=== PATIENT | female | born 1995 | race Caucasian/White ===

== ENCOUNTER → 2016-09-30 | Outpatient (CLI) | payer OTHER ==
[~2016-09-30] MED LIST: FLEXERIL10 M1 PO; FLEXERIL10 MG PO; LEXAPRO PO; NO MEDICATIONS; VOLTAREN75 MG PO
--- NOTE | ~2016-09-30 | US6 ---
[facility] A Service of [facility] & [facility] RADIOLOGY TEXT RESULTS PATIENT: MELINDA PISANO LOCATION: [facility] : 95 UNIT #: [id number] AGE: [address]: Colby Miller MD SEX: F ORDER DR: [id number] [facility] [address] [place], [place] [address] [id number] O MR#: [id number] Acc #: [id number] NAME: MELINDA PISANO : 1995 SEX: F STUDY DATE/TIME: 09/30/2016 7:23 UNIT: [facility] ROOM: STUDY DESCRIPTION: US Abdominal Limited Attending Physician: Colby Miller M.D. Referring Physician: Colby Miller M.D. Ordering Physician: Colby Miller M.D. Primary Care Physician: Godfrey Jackson M.D. MEDICAL IMAGING REPORT This report is preliminary unless electronic signature is present EXAM Right quadrant abdominal ultrasound, 09/30/2016 HISTORY Physician's order states abdominal pain, nausea and vomiting, hematemesis, anxiety. The patient states abdominal pain for [address] abdomen and pelvis with contrast, 02/10/2012 FINDINGS Pancreas is partially obscured by bowel gas but the visualized pancreas appears normal. The liver has a normal sonographic appearance without focal or suspicious abnormality. Liver size is within normal limits, 14.5 cm in long axis. No ascites is seen. Intrahepatic IVC has a normal garg-scale appearance. The gallbladder is free of shadowing stone, sludge, wall thickening or pericholecystic fluid. Right kidney measures 9.6 cm in length without focal cortical lesion, shadowing stone or hydronephrosis. Common bile duct caliber is normal, 2.0 mm. No intrahepatic biliary ductal dilation is seen. IMPRESSION Normal right upper quadrant abdominal ultrasound. Dictated by... Marilynn Mensah M.D. THIS IS AN ELECTRONICALLY VERIFIED REPORT Marilynn Mensah M.D. at 09/30/2016 5:06 PM SHELLI/krystyna STS. [facility] A Service of [facility] & [facility] RADIOLOGY TEXT RESULTS PATIENT: MELINDA PISANO LOCATION: [facility] : 95 UNIT #: [id number] AGE: [address]: Colby Miller MD SEX: F ORDER DR: TD: 09/30/2016 10:37 JOB #: [id number] MEDICAL IMAGING REPORT Page 1 of 1 COPY
== END | disposition home or self-care (01) ==
LOC: CGUS 06:45
DX: R10.11 Right upper quadrant pain (principal); R11.2 Nausea with vomiting, unspecified; K92.0 Hematemesis; F41.9 Anxiety disorder, unspecified
CPT/HCPCS: 76705

== ENCOUNTER 2017-01-26 17:15 | Emergency (ER) | payer OTHER ==
[~2017-01-26] VITALS: Ht 154.9 cm; Wt 90.7 kg
== END 2017-01-26 17:45 | disposition left against medical advice (07) ==
LOC: CED 17:15
DX: Z53.21 Procedure and treatment not carried out due to patient leaving prior to being seen by health care provider (principal)